=== PATIENT | female | born 1950 | race Caucasian/White ===

== ENCOUNTER 2021-02-05 15:55 | Outpatient (CLI) | payer OTHER, MEDICARE, SELFPAY ==
--- NOTE | 2021-02-05 16:17 | XR_ITS ---
WS: [id number] DEXA (DUAL ENERGY X-RAY ABSORPTIOMETRY) Bone mineral density was performed using a [employer] machine. HISTORY: OSTEOPOROSIS, ANNUAL EXAM, HYPOTHYROIDISM COMPARISON: 02/08/2019 Lumbar spine BMD (L1-L4): 0.873 g/cm2 T score: -2.6 Z score: -1.0 Total hip BMD: Left: 0.695 g/cm2. T score: -2.5 Z score: -1.0 Right: 0.685 g/cm2. T score: -2.6 Z score: -1.1 10 year probability of a major osteoporotic fracture is 28%. Compared to the prior study from 02/08/2019. Lumbar spine bone mineral density has increased by 3.6%. Bilateral hips bone mineral density has decreased by 0.3%. XR/XR DEXA axial skeleton* [id number] IMPRESSION: OSTEOPOROSIS based upon the WHO classification for females. There has been a si gnificant increase in bone mineral density within the lumbar spine since the pr ior study.
== END 2021-02-05 15:56 | disposition home or self-care (01) ==
PROVIDERS: Visit Provider Family Medicine
DX: Z00.00 Encounter for general adult medical examination without abnormal findings (principal); M81.0 Age-related osteoporosis without current pathological fracture; E03.9 Hypothyroidism, unspecified; I10 Essential (primary) hypertension
CPT/HCPCS: 77080

== ENCOUNTER 2021-03-10 06:54 | Outpatient (CLI) | payer MEDICARE, OTHER, SELFPAY ==
--- NOTE | 2021-03-10 07:14 | US_ITS ---
WS: [id number] INDICATION: Neck mass TECHNIQUE: Ultrasound soft tissue FINDINGS: Ultrasound soft tissue area of concern. No evidence of underlying cystic or solid mass. No suspicious abnormality in the area of concern. US/US soft tissue head neck [id number] IMPRESSION: No suspicious findings in the area of concern.
== END 2021-03-10 06:55 | disposition home or self-care (01) ==
PROVIDERS: Visit Provider Family Medicine
DX: R22.1 Localized swelling, mass and lump, neck (principal)
CPT/HCPCS: 76536

== ENCOUNTER → 2021-12-16 11:02 | Outpatient (BNVA) | payer MEDICARE, OTHER, SELFPAY | PROVIDERS: PCP Family Medicine; Visit Provider Family Medicine | DX: Z00.00 Encounter for general adult medical examination without abnormal findings (principal); E03.9 Hypothyroidism, unspecified; I10 Essential (primary) hypertension | CPT/HCPCS: 80053; 80061; 84443 ==

== ENCOUNTER → 2022-11-10 10:13 | Outpatient (BNVA) | payer MEDICARE, OTHER, SELFPAY | PROVIDERS: PCP Family Medicine; Visit Provider Family Medicine | DX: Z00.00 Encounter for general adult medical examination without abnormal findings (principal); R30.0 Dysuria; I10 Essential (primary) hypertension; E03.9 Hypothyroidism, unspecified | CPT/HCPCS: 80053; 80061; 81000; 84443 ==